=== PATIENT | female | born 1980 | race Hispanic/Latino ===

== ENCOUNTER 2023-11-12 23:27 | Inpatient (IN) | payer SELFPAY ==
[~2023-11-12] VITALS: Ht 152.4 cm; Wt 70.2 kg
[2023-11-12 23:55] LABS: BASOPHILS # (AUTO) 0.08 K/uL (0.00-0.20); BASOPHILS % (AUTO) 0.3 % (0.0-5.0); EOSINOPHILS # (AUTO) 0.03 K/uL (0.00-0.70); EOSINOPHILS % (AUTO) 0.1 % (0.0-8.0); IMMATURE GRANULOCYTE ABSOLUTE 0.57 K/uL (0-1); LYMPHOCYTES # (AUTO) 1.1 K/uL (1.0-4.8); LYMPHOCYTES % (AUTO) 3.7 % (21.0-51.0); MEAN CORPUSCULAR HGB CONC 32.7 g/dL (32.0-36.0); MEAN CORPUSCULAR VOLUME 88.7 fL (79-99); MONOCYTES # (AUTO) 2.2 K/uL (0.1-1.0); MONOCYTES % (AUTO) 7.3 % (3.0-13.0); NEUTROPHILS # (AUTO) 25.8 K/uL (1.8-7.7); NEUTROPHILS % (AUTO) 86.7 % (40.0-77.0); NUCLEATED RED BLOOD CELLS 0.4 % (0.0-0.19); PLATELET COUNT (AUTO) 247 K/uL (130-400); RED BLOOD CELL COUNT(AUTO) 4.96 MIL/uL (4.00-5.50); RED CELL DISTRIBUTION WIDTH 15.7 % (11.0-15.5); WHITE BLOOD COUNT (AUTO) 29.7 K/uL (4.8-10.8)
[2023-11-12 23:57] LABS: CARBON DIOXIDE 21 mmol/L (21-32); CHLORIDE 108 mmol/L (101-111); CREATININE 3.3 mg/dL (0.5-1.0); GLOMERULAR FILTR. RATE CALC 14 mL/min (>90); GLUCOSE,RANDOM 139 mg/dL (70-105); POTASSIUM 3.8 mmol/L (3.5-5.1); SODIUM SERUM 143 mmol/L (136-145); UREA NITROGEN, BLOOD 20 mg/dL (7-18)
[2023-11-13] VITALS (114 sets, daily range): BP systolic 80–131; BP diastolic 39–91; PULSE 64–100; RESP 5–39; O2SAT 97–100
[2023-11-13] MEDS ORDERED: FENTANYL 1000MCG+NS 100ML 100 ML IV SCH
[2023-11-13 00:02] LABS: ALANINE AMINOTRANSFERASE 56 U/L (12-78); ALCOHOL, BLOOD < 3 mg/dL (0-10); ASPARTATE AMINOTRANSFERASE 108 U/L (10-37); BILIRUBIN,TOTAL 1.5 mg/dL (0.2-1.0); TOTAL PROTEIN, SERUM 8.1 g/dL (6.0-8.3)
[2023-11-13 00:03] LABS: ACETAMINOPHEN < 1 mcg/mL (10-30); SALICYLATE < 2.8 mg/dL (2.8-20.0)
[2023-11-13] MEDS: DEXMEDETOMIDINE 400MCG/NS100ML IV SCH (00:19)
[2023-11-13] MEDS: LACTATED RINGERS 1000ML 1,000 ML IV ONE (00:20)
[2023-11-13] MEDS: FENTANYL 1000MCG+NS 100ML 100 ML IV ONE (00:28)
[2023-11-13 00:30] LABS: APPEARANCE,URINE CLOUDY (CLEAR); BILIRUBIN,URINE NEGATIVE (NEGATIVE); COLOR,URINE LIGHT-YELLOW (YELLOW); GLUCOSE, URINE (UA) TRACE mg/dL (NEGATIVE); KETONES,URINE NEGATIVE (NEGATIVE); LEUKOCYTE ESTERASE ,URINE NEGATIVE Leu/uL (NEGATIVE); NITRATE,URINE NEGATIVE (NEGATIVE); OCCULT BLOOD,URINE LARGE (NEGATIVE); PH,URINE 8.5 (5.0-8.0); PROTEIN,URINE 100 mg/dL (NEGATIVE); UROBILINOGEN,URINE 0.2 mg/dL (0.2-1.0)
[2023-11-13 00:32] LABS: ADD UA MICROSCOPIC YES
[2023-11-13 00:33] LABS: BACTERIA,URINE None Seen /HPF (None Seen)
[2023-11-13 00:34] LABS: MUCUS,URINE Rare LPF (None Seen); SQUAMOUS EPITHELIAL CELL,UR Rare /HPF (0-2)
[2023-11-13 00:37] LABS: AMPHET/METH SCREEN,URINE NEGATIVE (NEGATIVE); BARBITURATE SCREEN, URINE NEGATIVE (NEGATIVE); BENZODIAZEPINES SCREEN,URINE NEGATIVE (NEGATIVE); CANNABINOID SCREEN,URINE NEGATIVE (NEGATIVE); COCAINE SCREEN,URINE NEGATIVE (NEGATIVE); OPIATE SCREEN,URINE NEGATIVE (NEGATIVE); PHENCYCLIDINE SCREEN,URINE NEGATIVE (NEGATIVE)
[2023-11-13 00:50] LABS: ABG BASE EXCESS -14.6 mmol/L (-2.0-3.0); ABG HCO3 14.5 mmol/L (21.0-28.0); ABG OXYGEN SATURATION 98.9 % (95.0-99.0); ABG PCO2 46 mmHg (32-45); CARBON MONOXIDE 0.5; HHb 1.1; PO2, ARTERIAL BG 183.1 mmHg (83.0-108.0); VENT MODE, BG AC VC (ROOM AIR)
[2023-11-13] MEDS: ZOSYN 3.375GM +NS 50ML IVPB ONE (00:52)
[2023-11-13] MEDS ORDERED: VANCOMYCIN PROTOCOL PER PHARMACY IV SCH ×2 (01:00→04:00)
[2023-11-13 02:06] LABS: ABG BASE EXCESS -12.3 mmol/L (-2.0-3.0); ABG HCO3 12.7 mmol/L (21.0-28.0); ABG OXYGEN SATURATION 98.7 % (95.0-99.0); ABG PCO2 28 mmHg (32-45); ABG PH 7.278 (7.35-7.450); CARBON MONOXIDE 0.3; HHb 1.3; PO2, ARTERIAL BG 155.3 mmHg (83.0-108.0); VENT MODE, BG AC VC (ROOM AIR)
[2023-11-13] MEDS: 0.9%NACL 1000ML 1,000 ML IV SCH ×2 (02:22→06:58)
[2023-11-13] MEDS: POTASSIUM CHLORIDE 10% ELIXIR 20 MEQ/15 ML UDCUP PO ONE (02:22)
[2023-11-13] MEDS: SODIUM BICARB 50MEQ 50ML VIAL IV ONE (02:22)
[2023-11-13] MEDS ORDERED: PROPOFOL 1000 MG/100 ML IV PRN (02:30)
[2023-11-13 03:27] LABS: ABG BASE EXCESS -10.7 mmol/L (-2.0-3.0); ABG HCO3 13.7 mmol/L (21.0-28.0); ABG OXYGEN SATURATION 98.5 % (95.0-99.0); ABG PCO2 27 mmHg (32-45); ABG PH 7.317 (7.35-7.450); CARBON MONOXIDE 0.4; HHb 1.5; PO2, ARTERIAL BG 135.9 mmHg (83.0-108.0); VENT MODE, BG AC VC (ROOM AIR)
[2023-11-13] MEDS: HEPARIN 5,000 UNIT VIAL SQ SCH (04:00)
[2023-11-13] MEDS ORDERED: DEXTROSE 50%-WATER 50 ML DISP.SYRIN IV PRN (04:00)
[2023-11-13] MEDS ORDERED: 0.9%NACL 1000ML 1,000 ML IV SCH (04:00)
[2023-11-13] MEDS ORDERED: GLUCAGON 1MG KIT 1 MG ML IM PRN (04:00)
[2023-11-13] MEDS ORDERED: acetaMINOPHEN 325 MG TAB PO PRN (04:00)
[2023-11-13] MEDS: ceFEPime HCL 2 GM VIAL IVPB SCH (04:40)
[2023-11-13 04:57] LABS: HEMOGLOBIN A1C 6.1 % (4.0-6.0)
[2023-11-13 05:19] LABS: B-TYPE NATRIURETIC PEPTIDE 133 pg/mL (0-100)
[2023-11-13 05:36] LABS: ALBUMIN 3.5 g/dL (3.5-5.0); BILIRUBIN,TOTAL 2.2 mg/dL (0.2-1.0); CREATININE 2.3 mg/dL (0.5-1.0); MAGNESIUM 1.8 mg/dL (1.80-2.40); POTASSIUM 3.5 mmol/L (3.5-5.1); THYROID STIMULATING HORMONE 1.02 uIU/mL (0.36-3.74); TOTAL PROTEIN, SERUM 6.7 g/dL (6.0-8.3)
[2023-11-13 05:55] LABS: BASOPHILS # (AUTO) 0.03 K/uL (0.00-0.20); BASOPHILS % (AUTO) 0.2 % (0.0-5.0); EOSINOPHILS # (AUTO) 0.01 K/uL (0.00-0.70); EOSINOPHILS % (AUTO) 0.1 % (0.0-8.0); HEMATOCRIT 41.7 % (36-48); LYMPHOCYTES # (AUTO) 1.2 K/uL (1.0-4.8); LYMPHOCYTES % (AUTO) 6.5 % (21.0-51.0); MEAN CORPUSCULAR HGB CONC 33.6 g/dL (32.0-36.0); MEAN CORPUSCULAR VOLUME 86.5 fL (79-99); MONOCYTES # (AUTO) 1.5 K/uL (0.1-1.0); NEUTROPHILS # (AUTO) 15.9 K/uL (1.8-7.7); NEUTROPHILS % (AUTO) 84.1 % (40.0-77.0); NUCLEATED RED BLOOD CELLS 0.8 % (0.0-0.19); PLATELET COUNT (AUTO) 196 K/uL (130-400); RED BLOOD CELL COUNT(AUTO) 4.82 MIL/uL (4.00-5.50); RED CELL DISTRIBUTION WIDTH 15.9 % (11.0-15.5); WHITE BLOOD COUNT (AUTO) 18.8 K/uL (4.8-10.8)
[2023-11-13] MEDS: INSULIN HUMULIN R 100 UNIT/ML 3ML SQ SCH (06:00)
[2023-11-13] MEDS: IpraTROPium/alBUTERol SULFATE 3 ML SOLUTION IH SCH (06:17)
[2023-11-13] MEDS: NOREPINEPHRIN 4MG/NS 250ML 250 ML IV SCH (06:58)
[2023-11-13] MEDS: 0.9%NACL 1000ML 1,000 ML IV ONE (06:58)
[2023-11-13] MEDS: FAMOTIDINE 20MG VIAL IV SCH (08:47)
[2023-11-13] MEDS: VANCOMYCIN 1.75 GM/250 ML BAG 250 ML IV ONE (08:52)
[2023-11-13] MEDS ORDERED: ENOXAPARIN SODIUM 30 MG/0.3 ML SQ SCH (09:00)
[2023-11-13 09:50] LABS: CREATININE 1.9 mg/dL (0.5-1.0); POTASSIUM 3.6 mmol/L (3.5-5.1)
[2023-11-13] MEDS: METRONIDAZOLE 500MG/100ML BAG IV SCH (09:50)
[2023-11-13] MEDS: DEXTROSE 5 % AND 0.9 % NACL 1,000 ML IV SCH (09:51)
[2023-11-13] MEDS: LACTATED RINGERS 1000ML IV ONE (11:03)
[2023-11-13] MEDS ORDERED: LORazepam 2 MG/ML 1 ML VIAL IVP PRN ×2 (14:00)
[2023-11-13] MEDS ORDERED: chlordiazePOXIDE HCL 25 MG CAP PO PRN ×2 (14:00)
[2023-11-13] MEDS ORDERED: PHARMACY COMMUNICATION MISC PRN (14:00)
[2023-11-13 14:22] LABS: INR 1.16 (0.85-1.15); PROTHROMBIN TIME 12.4 SEC (9.6-11.6)
[2023-11-13 14:23] LABS: PARTIAL THROMBOPLASTIN TIME 28.8 SEC (26.3-35.5)
[2023-11-13 14:46] LABS: CREATININE 1.5 mg/dL (0.5-1.0); POTASSIUM 3.7 mmol/L (3.5-5.1)
[2023-11-13 15:00] LABS: HIV 1&2 ANTIBODY Non-Reactive (Negative); HIV-1 p24 Antigen Non-Reactive (Negative)
[2023-11-13 18:08] LABS: SARS-CoV-2, RNA, NAAT NEGATIVE SARS CoV-2 (NEGATIVE)
[2023-11-13 18:15] LABS: INFLUENZA TYPE A Negative For Type A (NEGATIVE); INFLUENZA TYPE B Negative For Type B (NEGATIVE)
[2023-11-14] VITALS (59 sets, daily range): BP systolic 100–126; BP diastolic 53–79; PULSE 58–90; RESP 6–97; O2SAT 94–98
[2023-11-14] MEDS: ceFEPime HCL 2 GM VIAL IVPB SCH (07:47)
[2023-11-14] MEDS: FAMOTIDINE 20MG VIAL IV SCH (07:47)
[2023-11-14] MEDS: acetaMINOPHEN 325 MG TAB PO PRN (08:01)
[2023-11-14] MEDS: ONDANSETRON 4MG INJ IV PRN (08:10)
[2023-11-14] MEDS: PHENTOLAMINE MESYLATE 5 MG VIAL ICAV SCH (08:40)
[2023-11-14 08:46] LABS: POTASSIUM 3.1 mmol/L (3.5-5.1)
[2023-11-14 09:09] LABS: ALBUMIN 2.7 g/dL (3.5-5.0); BILIRUBIN,TOTAL 1.4 mg/dL (0.2-1.0); TOTAL PROTEIN, SERUM 6.1 g/dL (6.0-8.3)
[2023-11-14] MEDS ORDERED: POTASSIUM PHOS 15 mMOL+NS250ML 250 ML IV PRN (09:30)
[2023-11-14 09:59] LABS: HEMATOCRIT 35.9 % (36-48); MEAN CORPUSCULAR HGB CONC 33.4 g/dL (32.0-36.0); MEAN CORPUSCULAR VOLUME 86.7 fL (79-99); NUCLEATED RED BLOOD CELLS 0.1 % (0.0-0.19); RED BLOOD CELL COUNT(AUTO) 4.14 MIL/uL (4.00-5.50); RED CELL DISTRIBUTION WIDTH 16.6 % (11.0-15.5); WHITE BLOOD COUNT (AUTO) 15.1 K/uL (4.8-10.8)
[2023-11-14] MEDS: KETOROLAC 15MG/ML VIAL (15MG/ML) IV PRN (10:57)
[2023-11-14] MEDS: PROCHLORPERAZINE 10MG/2ML INJ IV PRN (10:58)
[2023-11-14] MEDS: DiphenhydrAMINE HCL 50 MG/ML VIAL IV PRN (10:58)
[2023-11-14] MEDS: SODIUM BICARBONATE 650 MG TAB PO SCH (16:58)
[2023-11-14] MEDS: POTASSIUM CHLORIDE 10% ELIXIR 20 MEQ/15 ML UDCUP PO PRN (16:59)
[2023-11-14] MEDS ORDERED: BUTALB/ACETAMINOPHEN/CAFFEINE 1 EACH TABLET PO PRN (18:00)
[2023-11-15] VITALS (9 sets, daily range): BP systolic 118–137; BP diastolic 68–80; PULSE 57–70; RESP 16–20; O2SAT 97–98
[2023-11-15 04:39] LABS: BASOPHILS # (AUTO) 0.03 K/uL (0.00-0.20); BASOPHILS % (AUTO) 0.3 % (0.0-5.0); HEMATOCRIT 31.4 % (36-48); IMMATURE GRANULOCYTE ABSOLUTE 0.04 K/uL (0-1); LYMPHOCYTES % (AUTO) 21.3 % (21.0-51.0); MEAN CORPUSCULAR HEMOGLOBIN 29.2 pg (27.0-33.0); MEAN CORPUSCULAR HGB CONC 34.1 g/dL (32.0-36.0); MEAN CORPUSCULAR VOLUME 85.6 fL (79-99); MONOCYTES # (AUTO) 0.6 K/uL (0.1-1.0); MONOCYTES % (AUTO) 5.9 % (3.0-13.0); NEUTROPHILS # (AUTO) 6.9 K/uL (1.8-7.7); NEUTROPHILS % (AUTO) 72.1 % (40.0-77.0); PLATELET COUNT (AUTO) 108 K/uL (130-400); RED BLOOD CELL COUNT(AUTO) 3.67 MIL/uL (4.00-5.50); RED CELL DISTRIBUTION WIDTH 15.9 % (11.0-15.5); WHITE BLOOD COUNT (AUTO) 9.5 K/uL (4.8-10.8)
[2023-11-15 05:52] LABS: ALBUMIN 2.6 g/dL (3.5-5.0); BILIRUBIN,TOTAL 1.9 mg/dL (0.2-1.0); CREATININE 0.8 mg/dL (0.5-1.0); POTASSIUM 3.2 mmol/L (3.5-5.1); TOTAL PROTEIN, SERUM 5.7 g/dL (6.0-8.3); VANCOMYCIN TROUGH 1.2 UG/ML (10.0-20.0)
[2023-11-15] MEDS: VANCOMYCIN 1G/250ML KIT 250 ML IV SCH (06:08)
[2023-11-15] MEDS ORDERED: DEXTROSE 5%-WATER 1,000 ML IV SCH (10:00)
[2023-11-15] MEDS: DEXTROSE 5 % AND 0.9 % NACL 1,000 ML IV SCH (12:23)
[2023-11-15] MEDS: KCL 20 MEQ ERTAB PO PRN (13:05)
[2023-11-15] MEDS: MAGNESIUM 2GM PREMIX 50ML 50 ML IV ONE (13:05)
[2023-11-15] MEDS ORDERED: VANCOMYCIN 1G/250ML KIT 250 ML IV SCH (18:00)
[2023-11-16] VITALS (9 sets, daily range): BP systolic 109–156; BP diastolic 60–78; PULSE 52–74; RESP 16–20; O2SAT 95–98
[2023-11-16 05:35] LABS: BASOPHILS # (AUTO) 0.03 K/uL (0.00-0.20); BASOPHILS % (AUTO) 0.3 % (0.0-5.0); IMMATURE GRANULOCYTE ABSOLUTE 0.11 K/uL (0-1); LYMPHOCYTES % (AUTO) 19.4 % (21.0-51.0); MEAN CORPUSCULAR HEMOGLOBIN 28.3 pg (27.0-33.0); MEAN CORPUSCULAR HGB CONC 32.9 g/dL (32.0-36.0); MEAN CORPUSCULAR VOLUME 85.9 fL (79-99); MONOCYTES # (AUTO) 0.6 K/uL (0.1-1.0); MONOCYTES % (AUTO) 6.1 % (3.0-13.0); NEUTROPHILS # (AUTO) 7.3 K/uL (1.8-7.7); NEUTROPHILS % (AUTO) 73.1 % (40.0-77.0); NUCLEATED RED BLOOD CELLS 0.4 % (0.0-0.19); PLATELET COUNT (AUTO) 133 K/uL (130-400); RED BLOOD CELL COUNT(AUTO) 3.96 MIL/uL (4.00-5.50); RED CELL DISTRIBUTION WIDTH 15.5 % (11.0-15.5)
[2023-11-16 05:50] LABS: ALBUMIN 2.8 g/dL (3.5-5.0); BILIRUBIN,TOTAL 1.8 mg/dL (0.2-1.0); CREATININE 0.9 mg/dL (0.5-1.0); MAGNESIUM 1.9 mg/dL (1.80-2.40); TOTAL PROTEIN, SERUM 6.3 g/dL (6.0-8.3)
[2023-11-16] MEDS: HEPARIN 5,000 UNIT VIAL SQ SCH (08:47)
[2023-11-16] MEDS ORDERED: FUROSEMIDE 40MG VIAL IV ONE (11:30)
[2023-11-17] VITALS (9 sets, daily range): BP systolic 114–147; BP diastolic 64–79; PULSE 59–76; RESP 14–18; O2SAT 97–98
[2023-11-18] VITALS (13 sets, daily range): BP systolic 125–159; BP diastolic 69–87; PULSE 56–80; RESP 16–20; O2SAT 96–97
[2023-11-18 05:26] LABS: BASOPHILS # (AUTO) 0.04 K/uL (0.00-0.20); BASOPHILS % (AUTO) 0.4 % (0.0-5.0); EOSINOPHILS # (AUTO) 0.03 K/uL (0.00-0.70); EOSINOPHILS % (AUTO) 0.3 % (0.0-8.0); HEMATOCRIT 38.8 % (36-48); IMMATURE GRANULOCYTE ABSOLUTE 0.12 K/uL (0-1); LYMPHOCYTES # (AUTO) 1.8 K/uL (1.0-4.8); LYMPHOCYTES % (AUTO) 20.3 % (21.0-51.0); MEAN CORPUSCULAR HEMOGLOBIN 28.6 pg (27.0-33.0); MEAN CORPUSCULAR HGB CONC 33.5 g/dL (32.0-36.0); MEAN CORPUSCULAR VOLUME 85.5 fL (79-99); MONOCYTES # (AUTO) 0.7 K/uL (0.1-1.0); MONOCYTES % (AUTO) 7.9 % (3.0-13.0); NEUTROPHILS # (AUTO) 6.3 K/uL (1.8-7.7); NEUTROPHILS % (AUTO) 69.8 % (40.0-77.0); NUCLEATED RED BLOOD CELLS 0.4 % (0.0-0.19); PLATELET COUNT (AUTO) 248 K/uL (130-400); RED BLOOD CELL COUNT(AUTO) 4.54 MIL/uL (4.00-5.50); RED CELL DISTRIBUTION WIDTH 15.2 % (11.0-15.5); WHITE BLOOD COUNT (AUTO) 9.1 K/uL (4.8-10.8)
[2023-11-18 05:49] LABS: BILIRUBIN,TOTAL 2.4 mg/dL (0.2-1.0); CREATININE 0.7 mg/dL (0.5-1.0); MAGNESIUM 1.6 mg/dL (1.80-2.40); PHOSPHORUS 3.5 mg/dL (2.5-4.9)
[2023-11-18 05:53] LABS: POTASSIUM 2.7 mmol/L (3.5-5.1)
[2023-11-18] MEDS: POTASSIUM CHLORIDE 10MEQ/100ML 100 ML IV PRN (05:58)
[2023-11-18] MEDS: MAGNESIUM 2GM PREMIX 50ML 50 ML IV PRN (12:41)
[2023-11-18 13:07] LABS: MAGNESIUM 1.7 mg/dL (1.80-2.40)
[2023-11-18 13:09] LABS: POTASSIUM 2.6 mmol/L (3.5-5.1)
[2023-11-18] MEDS: POTASSIUM CHLORIDE 10MEQ SR TAB PO PRN (13:14)
[2023-11-18] MEDS: INSULIN HUMULIN R 100 UNIT/ML 3ML SQ SCH (21:30)
[2023-11-19] VITALS (16 sets, daily range): BP systolic 113–137; BP diastolic 65–91; PULSE 65–88; RESP 14–19; O2SAT 96–98
[2023-11-19 04:21] LABS: BASOPHILS # (AUTO) 0.03 K/uL (0.00-0.20); BASOPHILS % (AUTO) 0.4 % (0.0-5.0); EOSINOPHILS # (AUTO) 0.02 K/uL (0.00-0.70); EOSINOPHILS % (AUTO) 0.2 % (0.0-8.0); HEMATOCRIT 36.9 % (36-48); IMMATURE GRANULOCYTE ABSOLUTE 0.07 K/uL (0-1); LYMPHOCYTES # (AUTO) 1.8 K/uL (1.0-4.8); LYMPHOCYTES % (AUTO) 20.9 % (21.0-51.0); MEAN CORPUSCULAR HEMOGLOBIN 29.1 pg (27.0-33.0); MEAN CORPUSCULAR HGB CONC 34.7 g/dL (32.0-36.0); MEAN CORPUSCULAR VOLUME 83.9 fL (79-99); MONOCYTES # (AUTO) 0.6 K/uL (0.1-1.0); MONOCYTES % (AUTO) 7.5 % (3.0-13.0); NEUTROPHILS % (AUTO) 70.2 % (40.0-77.0); PLATELET COUNT (AUTO) 348 K/uL (130-400); RED CELL DISTRIBUTION WIDTH 15.7 % (11.0-15.5); WHITE BLOOD COUNT (AUTO) 8.5 K/uL (4.8-10.8)
[2023-11-19 04:47] LABS: BILIRUBIN,TOTAL 1.8 mg/dL (0.2-1.0); CREATININE 0.7 mg/dL (0.5-1.0); MAGNESIUM 1.7 mg/dL (1.80-2.40); TOTAL PROTEIN, SERUM 7.1 g/dL (6.0-8.3)
[2023-11-19] MEDS: BACITRACIN 28.4 GM OINT TP SCH (09:54)
[2023-11-19 21:08] LABS: MAGNESIUM 1.9 mg/dL (1.80-2.40); POTASSIUM 3.2 mmol/L (3.5-5.1)
[2023-11-20] VITALS (14 sets, daily range): BP systolic 118–137; BP diastolic 65–86; PULSE 68–111; RESP 17–18; O2SAT 97–98
[2023-11-20 05:51] LABS: BASOPHILS # (AUTO) 0.02 K/uL (0.00-0.20); BASOPHILS % (AUTO) 0.2 % (0.0-5.0); EOSINOPHILS # (AUTO) 0.04 K/uL (0.00-0.70); EOSINOPHILS % (AUTO) 0.4 % (0.0-8.0); HEMATOCRIT 38.5 % (36-48); IMMATURE GRANULOCYTE ABSOLUTE 0.06 K/uL (0-1); LYMPHOCYTES # (AUTO) 1.5 K/uL (1.0-4.8); LYMPHOCYTES % (AUTO) 17.1 % (21.0-51.0); MEAN CORPUSCULAR HGB CONC 33.8 g/dL (32.0-36.0); MEAN CORPUSCULAR VOLUME 85.7 fL (79-99); MONOCYTES # (AUTO) 0.7 K/uL (0.1-1.0); MONOCYTES % (AUTO) 8.2 % (3.0-13.0); NEUTROPHILS # (AUTO) 6.5 K/uL (1.8-7.7); NEUTROPHILS % (AUTO) 73.4 % (40.0-77.0); PLATELET COUNT (AUTO) 445 K/uL (130-400); RED BLOOD CELL COUNT(AUTO) 4.49 MIL/uL (4.00-5.50); RED CELL DISTRIBUTION WIDTH 16.4 % (11.0-15.5); WHITE BLOOD COUNT (AUTO) 8.9 K/uL (4.8-10.8)
[2023-11-20 06:20] LABS: ALBUMIN 3.3 g/dL (3.5-5.0); BILIRUBIN,TOTAL 1.8 mg/dL (0.2-1.0); CREATININE 0.8 mg/dL (0.5-1.0); POTASSIUM 3.5 mmol/L (3.5-5.1); TOTAL PROTEIN, SERUM 7.4 g/dL (6.0-8.3)
[2023-11-21] VITALS (7 sets, daily range): BP systolic 112–138; BP diastolic 66–89; PULSE 74–106; RESP 18; O2SAT 96–98
[2023-11-22] VITALS: BP 114/70; PULSE 84; RESP 18
[2023-11-22 04:00] VITALS: BP 112/70; PULSE 71; RESP 18
[2023-11-22 08:00] VITALS: BP 115/67; PULSE 74; RESP 17; O2SAT 96
[2023-11-22 11:54] VITALS: BP 118/77; PULSE 93; RESP 17
[2023-11-22 16:00] VITALS: BP 120/83; PULSE 104; RESP 19
== END 2023-11-22 17:47 | disposition home or self-care (01) | DRG 871 ==
LOC: EDH 23:27 → EDHIP 23:28 → UNDOADMIN 11-13 03:33 → EDBD 11-13 03:33 → EDHIP 11-13 05:29 → 2BH 11-13 05:29 → 4CH 11-15 09:45
PROVIDERS: ADMIT Internal Medicine; ATTEND Internal Medicine
PROC: 0BH17EZ Insertion of Endotracheal Airway into Trachea, Via Natural or Artificial Opening (ICD-10-PCS; principal; 2023-11-13)
PROC: 5A1935Z Respiratory Ventilation, Less than 24 Consecutive Hours (ICD-10-PCS; 2023-11-13)
DX: A41.9 Sepsis, unspecified organism (principal); G92.8 Other toxic encephalopathy; J96.01 Acute respiratory failure with hypoxia; J96.02 Acute respiratory failure with hypercapnia; N17.9 Acute kidney failure, unspecified; M62.82 Rhabdomyolysis; E87.29 Other acidosis; Z20.822 Contact with and (suspected) exposure to COVID-19; E87.6 Hypokalemia; R74.8 Abnormal levels of other serum enzymes; E11.9 Type 2 diabetes mellitus without complications; E86.9 Volume depletion, unspecified; E87.70 Fluid overload, unspecified; I10 Essential (primary) hypertension; S50.321A Blister (nonthermal) of right elbow, initial encounter; W18.39XA Other fall on same level, initial encounter; Y93.89 Activity, other specified; Y92.89 Other specified places as the place of occurrence of the external cause; Y99.8 Other external cause status; E80.6 Other disorders of bilirubin metabolism
CPT/HCPCS: 31500; 36415; 36556; 36600; 70450; 71045; 74176; 76705; 80048; 80053; 80061; 80202; 80305; 81001; 82140; 82435; 82550; 82803; 82947; 82948; 83036; 83605; 83735; 83880; 84100; 84132; 84145; 84295; 84443; 84484; 84703; 85018; 85025; 85027; 85610; 85730; 86701; 87040; 87071; 87205; 87390; 87635; 87641; 87804; 93005; 93306; 93931; 93970; 93971; 94002; 94150; 94640; 94664; C1894; G0378; G0481; J0692; J0780; J1200; J1644; J1815; J1885; J2405; J2543; J2760; J3010; J3370; J3475; J3480; J3490; A9900; C1750